=== PATIENT | female | born 1990 ===

== ENCOUNTER 2016-03-09 12:58 | Emergency (ER) | payer SELFPAY ==
[2016-03-09 13:50] VITALS: BP 153/91
[2016-03-09 21:37] LABS: Bacteria,Urine 1+ /HPF (Negative); Bilirubin,Urine NEG (Negative); Blood,Urine NEG (Negative); Ketones,Urine NEG (Negative); Leukocyte Esterase,Urine MOD (Negative); Mucus,Urine 2+ /HPF; Nitrite,Urine NEG (Negative)
--- NOTE | 2016-03-09 22:51 | Emergency Department Report ---
HPI - General Chief Complaint: Upper Respiratory Infection Time Seen by Provider: 03/09/16 20:52 - HPI HPI: 25-year-old female past medical history recurrent sinusitis presents with complaint of approximately 1 week of worsening sinus congestion and nasal drainage, frontal headache, occasional cough, sensation of ear fullness. Also incidentally complaining of whitish vaginal discharge 3-4 days. Denies any dysuria or flank pain. Patient states LMP was 02/01 ED Past Medical Hx - Past Medical History Previous Medical History?: No - Surgical History Past Surgical History?: No - Social History Smoking Status: Current Every Day Smoker Substance Use Type: Alcohol - Medications Home Medications: Home Medications Medication Instructions Recorded Confirmed Last Taken Type Fluconazole [Diflucan TAB] 200 mg PO QDAY #2 tablet 11/08/15 Unknown Rx Ibuprofen [Motrin] 800 mg PO Q8HR PRN #15 tablet 11/08/15 Unknown Rx metroNIDAZOLE [Flagyl] 500 mg PO Q12HR #4 tab 11/08/15 Unknown Rx Amoxicillin/K Clav Tab [Augmentin 1 tab PO Q12HR #20 tab 03/09/16 Unknown Rx 875 mg] Azelastine 0.1% (Nf) [Astelin (Nf)] 137 mcg NS QDAY PRN #1 bottle 03/09/16 Unknown Rx Fluticasone [Flonase] 1 spray NS QDAY #1 bottle 03/09/16 Unknown Rx Ibuprofen [Motrin] 600 mg PO Q8H PRN #21 tablet 03/09/16 Unknown Rx Nitrofurantoin [place]/M-Cryst 100 mg PO Q12HR #14 capsule 03/09/16 Unknown Rx [Macrobid CAP] metroNIDAZOLE [Flagyl TAB] 500 mg PO Q12HR #14 tab 03/09/16 Unknown Rx ED Review of Systems ROS: Stated complaint: SINUS DISCHARGE Other details as noted in HPI Constitutional: denies: chills, fever Eyes: denies: eye pain, eye discharge, vision change ENT: ear pain, throat pain, congestion Respiratory: denies: cough, shortness of breath, wheezing Cardiovascular: denies: chest pain, palpitations Endocrine: no symptoms reported Gastrointestinal: denies: abdominal pain, nausea, diarrhea Genitourinary: discharge (whitish vaginal discharge). denies: urgency, dysuria Musculoskeletal: denies: back pain, joint swelling, arthralgia Skin: denies: rash, lesions Neurological: denies: headache, weakness, paresthesias Psychiatric: denies: anxiety, depression Hematological/Lymphatic: denies: easy bleeding, easy bruising Physical Exam - Physical Exam Vital Signs: Vital Signs 03/09/16 13:48 Temperature 98.9 F Pulse Rate 90 Respiratory 16 Rate Blood Pressure 153/91 O2 Sat by Pulse 100 Oximetry General: General: Well appearing, well nourished, in no distress. Oriented x 3, normal mood and affect . Ambulating without difficulty. Skin: Good turgor, no rash, unusual bruising or prominent lesions Head: Normocephalic, atraumatic, no visible or palpable masses, depressions, or scaring. Eyes: Visual acuity intact, conjunctiva clear, sclera non-icteric, EOM intact, PERRLA Ears: EACs clear, TMs slightly bulging translucent & mobile, no effusions ossicles nl appearance, hearing intact. Nose: No external lesions, mucosa mildly inflamed, septum and turbinates normal , no abscess or hematomas. Frontal maxillary sinus tenderness on percussion. Worse on the left Than right. Pharynx: Mucosa non-inflamed, no tonsillar hypertrophy or exudate Neck: Supple, without lesions, bruits, or adenopathy, thyroid non-enlarged and non-tender Heart: No cardiomegaly or thrills; regular rate and rhythm, no murmur or gallop Lungs: Clear to auscultation and percussion Abdomen: Bowel sounds normal, no tenderness, organomegaly, masses, or hernia Back: Spine normal without deformity or tenderness, no CVA tenderness Musculoskeletal: Normal gait and station. No misalignment, asymmetry, crepitation, defects, tenderness, masses, effusions, decreased range of motion, instability, atrophy or abnormal strength or tone in the head, neck, spine, ribs, pelvis or extremities. Neurologic: CN 2-12 normal. ED Course Vital Signs 03/09/16 13:48 Temperature 98.9 F Pulse Rate 90 Respiratory 16 Rate Blood Pressure 153/91 O2 Sat by Pulse 100 Oximetry ED Medical Decision Making - Medical Decision Making A/P: Sinusitis, bacterial vaginosis 1-will treat empirically with Flonase, Azelastine, Augmentin, Motrin, Claritin 2-will treat empirically with metronidazole pills as opposed to general, patient uninsured, gel very expensive. Patient has no dysuria, no bladder or flank tenderness but + leuk esterase and + WBCs, will tx emprically for UTI. 3-follow-up with primary care doctor and [employer] 4-I advised patient to call in 72 hours for results of Chlamydia gonorrhea swab. I do not think patient has cervicitis or Chlamydia gonorrhea infection clinically, but I sent test. Critical care attestation.: If time is entered above; I have spent that time in minutes in the direct care of this critically ill patient, excluding procedure time. ED Disposition Clinical Impression: Bacterial vaginosis Sinusitis Qualifiers: Sinusitis location: maxillary Chronicity: acute Recurrence: recurrent Qualified Code(s): J01.01 - Acute recurrent maxillary sinusitis Disposition: DISCHARGED TO HOME OR SELFCARE Is pt being admited?: No Does the pt Need Aspirin: No Condition: Stable Instructions: Bacterial Vaginosis (ED), Sinusitis (ED), Urinary Tract Infection in Women (ED) Prescriptions: Azelastine 0.1% (Nf) [Astelin (Nf)] 137 mcg NS QDAY PRN #1 bottle PRN Reason: Congestion Amoxicillin/K Clav Tab [Augmentin 875 mg] 1 tab PO Q12HR #20 tab metroNIDAZOLE [Flagyl TAB] 500 mg PO Q12HR #14 tab Fluticasone [Flonase] 1 spray NS QDAY #1 bottle Nitrofurantoin [place]/M-Cryst [Macrobid CAP] 100 mg PO Q12HR #14 capsule Ibuprofen [Motrin] 600 mg PO Q8H PRN #21 tablet PRN Reason: Pain Referrals: PRIMARY MD JEREMIAH [Primary Care Provider] - 3-5 Days [facility] [Outside] - 3-5 Days NIRU ELLIOTT MD [Staff Physician] - 3-5 Days Forms: STI Treatment and Prevention, Work/School Release Form(ED) Time of Disposition: 22:57
== END 2016-03-09 23:10 | disposition home or self-care (01) ==
LOC: ED 12:58
DX: N76.0 Acute vaginitis (principal); B96.89 Other specified bacterial agents as the cause of diseases classified elsewhere; J01.01 Acute recurrent maxillary sinusitis; F17.200 Nicotine dependence, unspecified, uncomplicated
CPT/HCPCS: 81001; 81025; 87086; 87210; 87591; 99283